=== PATIENT | female | born 1990 | race Caucasian/White ===

== ENCOUNTER 2023-02-26 19:01 | Emergency (ER) | payer SELFPAY ==
[~2023-02-26] VITALS: Ht 157.5 cm; Wt 65.8 kg
[2023-02-26 19:09] VITALS: BP_SYST 148; PULSE 83; RESP 18; TEMP 99.4; O2SAT 99
[2023-02-26] MEDS ORDERED: LORazepam 1 MG TABLET PO ONE (19:45)
[2023-02-26] MEDS ORDERED: KETOROLAC TROMETHAMINE 15 MG VIAL IM ONE (19:45)
[2023-02-26] MEDS ORDERED: KETOROLAC TROMETHAMINE 30 MG VIAL ONE (19:53)
[2023-02-26 19:54] LABS: BILIRUBIN,URINE NEGATIVE (NEGATIVE); CLARITY/URINE CLEAR (CLEAR); COLOR,URINE YELLOW (YELLOW); GLUCOSE,URINE NEGATIVE (NEGATIVE); KETONES,URINE 1+ (NEGATIVE); LEUKOCYTE ESTERASE ,URINE NEGATIVE (NEGATIVE); NITRITE, URINE NEGATIVE (NEGATIVE); PH,URINE 5.5 (5.0-8.0); PROTEIN URINE NEGATIVE (NEGATIVE); UROBILINOGEN,URINE 0.2 (0.2-1.0)
[2023-02-26 20:00] LABS: BLOOD, URINE TRACE (NEGATIVE)
[2023-02-26 20:02] LABS: BACTERIA,URINE FEW /HPF (None Seen); MUCUS,URINE 3+ /LPF (None Seen); RBC,URINE 0-3 /HPF (0-3); WBC,URINE 0-3 /HPF (0-3)
[2023-02-26 20:18] LABS: BASOPHILS # (AUTO) 0.1 K/uL (0.0-0.2); BASOPHILS % (AUTO) 0.7 % (0.0-2.0); EOSINOPHILS # (AUTO) 0.1 K/uL (0.0-0.4); EOSINOPHILS % (AUTO) 0.9 % (0.0-4.0); HEMATOCRIT 38.5 % (36-48); HEMOGLOBIN 12.7 g/dL (12.0-16.0); LYMPHOCYTES # (AUTO) 3.7 K/uL (1.0-5.5); LYMPHOCYTES % (AUTO) 32.5 % (20.5-51.5); MEAN CORPUSCULAR HEMOGLOBIN 28 pg (27-31); MEAN CORPUSCULAR HGB CONC 33 % (32-36); MEAN CORPUSCULAR VOLUME 86 fL (79.0-98.0); MONOCYTES # (AUTO) 1.2 K/uL (0.0-1.0); MONOCYTES % (AUTO) 10.1 % (1.7-9.3); NEUTROPHILS # (AUTO) 6.4 K/uL (1.8-7.7); NEUTROPHILS % (AUTO) 55.8 % (40.0-70.0); PLATELET COUNT (AUTO) 380 K/uL (130-430); RED BLOOD CELL COUNT(AUTO) 4.48 MIL/uL (4.2-6.2); RED CELL DISTRIBUTION WIDTH 14.7 % (9.0-15.0); WHITE BLOOD COUNT (AUTO) 11.4 K/uL (4.8-10.8)
[2023-02-26 20:27] LABS: ALANINE AMINOTRANSFERASE 18 U/L (12-78); ALBUMIN 3.7 g/dL (3.4-4.8); ANION GAP 11 (5-15); ASPARTATE AMINOTRANSFERASE 9 U/L (10-37); CALCIUM 8.1 mg/dL (8.4-11.0); CARBON DIOXIDE 25 mmol/L (23-29); CHLORIDE 101 mmol/L (98-107); CREATININE 0.57 mg/dL (0.55-1.30); GFR AFRICAN AMERICAN 160 mL/min (>90); GFR NON AFRICAN-AMERICAN 132 mL/min (>90); GLUCOSE 85 mg/dL (74-106); POTASSIUM 3.2 mmol/L (3.5-5.1); SODIUM SERUM 137 mmol/L (136-145); TOTAL BILIRUBIN 0.6 mg/dL (0.0-1.0); TOTAL PROTEIN, SERUM 7.6 g/dL (6.4-8.3); UREA NITROGEN, BLOOD 17 mg/dL (8-21)
[2023-02-26 20:36] LABS: FREE T4 (FREE THYROXINE) 1.3 ng/dl (0.8-1.5); LIPASE 50 U/L (73-393); THYROID STIMULATING HORMONE 2.41 uIu/mL (0.36-3.74)
[2023-02-26] MEDS ORDERED: POTASSIUM CHLORIDE 20 MEQ TAB.PRT.SR PO ONE (20:45)
[2023-02-26] MEDS ORDERED: IBUP-1969 PO (21:31)
[2023-02-26 22:02] VITALS: BP_SYST 121; PULSE 77; RESP 16; TEMP 98.8; O2SAT 98
== END 2023-02-26 22:05 | disposition home or self-care (01) ==
LOC: SED 19:01
DX: M25.551 Pain in right hip (principal); M25.552 Pain in left hip; R51.9 Headache, unspecified; R20.2 Paresthesia of skin; R42 Dizziness and giddiness; Z79.899 Other long term (current) drug therapy
CPT/HCPCS: 99285; 70450; 71045; 80053; 81000; 82962; 84439; 83690; 84443; 85025; 84484; 36415; 93005; 76376; 81025; 96372; J1885